=== PATIENT | female | born 1960 | race Caucasian/White ===

== ENCOUNTER 2016-12-20 04:54 | Emergency (ER) | payer OTHER ==
[2016-12-20 05:17] VITALS: RESP 16; O2SAT 96
[2016-12-20 05:35] LABS: % IMMATURE GRANULYOCYTES 0.5 % (0.0-1.1); ABSOLUTE IMMATURE GRANULOCYTES 0.03 10^3/uL (0.00-0.10); ADD DIFF? NO; ADD MORPH? NO; ADD SCAN? NO; ATYPICAL LYMPHOCYTE FLAG 0 (0-99); FRAGMENT RBC FLAG 0 (0-99); HEMATOCRIT 41.4 % (38.0-47.0); HEMOGLOBIN 13.9 g/dL (12.6-16.3); LEFT SHIFT FLG 0 (0-99); LIPEMIA HEMOLYSIS FLAG 80 (0-99); MEAN CELL HEMOGLOBIN 29.5 pg (27.9-34.1); MEAN CELL HEMOGLOBIN CONCENTR. 33.6 g/dL (32.4-36.7); MEAN CELL VOLUME 87.9 fL (81.5-99.8); MEAN PLATELET VOLUME 10.3 fL (8.7-11.7); PLATELET CLUMPS FLAG 0 (0-99); PLATELET COUNT 222 10^3/uL (150-400); RED BLOOD CELL COUNT 4.71 10^6/uL (4.18-5.33)
[2016-12-20 05:46] LABS: ANION GAP 7 mEq/L (8-16); CARBON DIOXIDE 26 mEq/l (22-31); CHLORIDE 108 mEq/L (97-110); CREATININE 0.8 mg/dL (0.6-1.0); GLOMERULAR FILTRATION RATE > 60; GLUCOSE 91 mg/dL (70-100); POTASSIUM 4.3 mEq/L (3.5-5.2); SODIUM 141 mEq/L (134-144)
--- NOTE | 2016-12-20 05:56 | CPEKG ---
Heart Rate: 62 RR Interval: 968 P-R Interval: 148 QRSD Interval: 78 QT Interval: 408 QTC Interval: 415 P [place]: 39 QRS [place]: 37 T Wave [place]: 42 EKG Severity - NORMAL ECG - EKG Impression: SINUS RHYTHM Electronically Signed By: Kendra Moreau 20-Dec-2016 07:05:51
[2016-12-20 05:57] LABS: TROPONIN I < 0.012 ng/mL (0-0.034)
--- NOTE | 2016-12-20 06:38 | EDPHY ---
H & P Stated Complaint: L arm weakness and neck pain Time Seen by Provider: 12/20/16 05:09 HPI/ROS: HPI The patient presents with L arm, axilla, and neck pain which started slowly, are described as a sharp pain, began while at rest and have been constant ever since. The pain is moderate in severity with no hx of previous. She has no associated chest pain or shortness of breath. She is concerned that her thyroid levels may be low. She does not have weakness. She has no recent injury. REVIEW OF SYSTEMS Constitutional: No fever, no chills. Eyes: No discharge. ENT: No sore throat. Cardiovascular: No chest pain, no palpitations. Respiratory: No cough, no shortness of breath. Gastrointestinal: No abdominal pain, no vomiting. Genitourinary: No hematuria. Musculoskeletal: No back pain. Skin: No rashes. Neurological: No headache. PMHx: hypothyroidism Soc Hx: here with her partner PHYSICAL General Appearance: [Alert, no distress] Eyes: [Pupils equal and round no pallor or injection] ENT, Mouth: [Mucous membranes moist] Respiratory: [There are no retractions, lungs are clear to auscultation] Cardiovascular: [ Regular rate and rhythm ] Gastrointestinal: [ Abdomen is soft and non-tender, no masses, bowel sounds normal ] Neurological: [ A&O, moves all extremities] Skin: [ Warm and dry, no rashes] Musculoskeletal: [Neck is supple non tender ] Extremities: [symmetrical, full range of motion ] Psychiatric: [ Patient is oriented X 3, there is no agitation ] Source: Patient - Personal History Current Tetanus Diphtheria and Acellular Pertussis (TDAP): Yes Tetanus Vaccine Date: 2 years ago - Medical/Surgical History Hx Asthma: No Hx Chronic Respiratory Disease: No Hx Diabetes: No Hx Cardiac Disease: No Hx Renal Disease: No Hx Cirrhosis: No Hx Alcoholism: No Hx HIV/AIDS: No Hx Splenectomy or Spleen Trauma: No Other PMH: HYPOTHYROID, MISCARRIAGE X 5 c D&C, HYSTERECTOMY, FRANCES, ophorectomy , endometriosis - Social History Smoking Status: Never smoked Constitutional: Initial Vital Signs Temperature (C) 36.7 C 12/20/16 05:00 Heart Rate 71 12/20/16 05:00 Respiratory Rate 16 12/20/16 05:00 Blood Pressure 144/74 H 12/20/16 05:00 O2 Sat (%) 96 12/20/16 05:00 O2 Delivery Mode Room Air Allergies/Adverse Reactions: atovaquone [From Malarone] Allergy (Verified 12/20/16 05:01) nitrofurantoin macrocrystalline [From Macrobid] Allergy (Verified 12/20/16 05:01 ) Penicillins Allergy (Verified 12/20/16 05:01) proguanil HCl [From Malarone] Allergy (Verified 12/20/16 05:01) Home Medications: Medication Instructions Recorded Levothyroxine Sodium [Levoxyl] 125 mcg PO DAILY 11/03/13 Sertraline HCl [Zoloft 100mg (RX)] 100 mg PO Q3D 11/03/13 Medical Decision Making - Diagnostics EKG Interpretation: EKG demonstrates normal sinus rhythm, see [facility] for full report. Imaging: Chest x ray 2 views shows no cardiomegly, no infiltrate, no effusion, interpreted by me, radiology interpretation is pending. ED Course/Re-evaluation: In the ER, the patient was place on the health professor. EKG and CXR were unremarkable, as were basic labs including troponin. She had resolution of her symptoms. Cause of her sxs is unclear at time of discharge, however, ACS, PE, dissection are all unlikely. She is comfortable going home. Differential Diagnosis: This is a 56 yo F with hypothyroidism who presents brought in by ambulance for neck pain, arm pain and occasional chest pain for the last several hours. On exam, she has normal vital signs, and is well appearing without any tenderness of her arm or neck. She attributes her symptoms to hypothyroidism. Differential diagnosis includes ACS, muscular pain, GERD, cervical strain or radiculopathy. - Data Points Laboratory Results: Laboratory Results 12/20/16 05:15 12/20/16 05:15 Departure - Departure Disposition: Home, Routine, Self-Care Clinical Impression: Neck pain Condition: Good Instructions: Neck Pain (ED) Additional Instructions: Please follow-up with your regular doctor in the next few days. Referrals: Patient,NotPresent [Unknown] - As per Instructions
[2016-12-20 06:53] VITALS: BP 113/74; PULSE 64; TEMP 97.9
== END 2016-12-20 06:52 | disposition home or self-care (01) ==
LOC: EDUNIT#
DX: M54.2 Cervicalgia (principal)